=== PATIENT | male | born 1995 | race African-American/Black ===

== ENCOUNTER 2021-08-09 12:44 | Outpatient (REF) | payer OTHER, SELFPAY ==
[2021-08-09 14:21] LABS: Binax Internal Control QC Valid; Binax Now Covid-19 Ag Negative (Negative)
[2021-08-09 14:22] LABS: Binax Lot number: 9864
== END 2021-08-09 12:45 | disposition home or self-care (01) ==
LOC: HO.LAB 12:44
PROVIDERS: Visit Provider Internal Medicine
DX: Z20.822 Contact with and (suspected) exposure to COVID-19 (principal)
CPT/HCPCS: 36415; C9803